=== PATIENT | male | born 1945 | race Caucasian/White ===

== ENCOUNTER 2025-01-21 11:24 | Emergency (ER) | payer MEDICARE ==
[~2025-01-21] VITALS: Ht 177.8 cm; Wt 66.2 kg
[2025-01-21 11:31] VITALS: TEMP 100.3
[2025-01-21] MEDS ORDERED: VALA100031 PO (12:16)
--- NOTE | 2025-01-21 12:16 | Physician Documentation ---
History of Present Illness ~ General Chief Complaint: Facial Swelling Stated Complaint: FACE INFECTION Time Seen by MD: 12:08 Mode of Arrival: POV, Ambulatory History of Present Illness Initial Comments 79 year old male with about one week of R sided facial rash which was treated with antibiotics. It has not gotten better. It was initially preceded by a ti ngling sensation of the right side of his face and scalp and then erupted in blisters and is somewhat painful. Reports +fever, N/V/D. Medication Reconciliation Allergies: Coded Allergies: No Known Allergies (Unverified , 01/21/25) Review of Systems All Other Systems at this time: Reviewed and Negative Physical Exam Physical Exam Vital Signs: RN Vital Signs have been reviewed: Yes, Temperature: 100.3, Source: Oral, Heart Rate: 74, Respiratory Rate: 16, BP: 127/73, Pulse Oximetry: 98, Weight: 66.200 Oxygen Flow Rate: 0 Physical Exam Gen: no distress HEENT: NCAT, EOMI, PERRL, MMM; erythematous, weeping, vesicular rash to R side of face involving primarily v1 dermatome, stops at midline, no induration, +zhong sign Pulm: no distress Cardiac: deferred Abdomen: soft, NT, ND MSK: no deformity Neuro: nonfocal Skin: w/d/i Psych: unremarkable Progress Results/Orders Results/Orders Orders - ERNESTINA STERLING MD Valacyclovir Tablet (Valtrex Tablet) (01/21/25 12:10) Vital Signs 01/21/25 11:31 Temp 100.3 Pulse 74 Resp 20 B/P (MAP) 127/73 Pulse Ox 98 O2 Flow Rate 0 Medical Decision Making Additional information obtaine: family Findings 79 year old male with apparent shingles. Advised discontinue antibiotic and will prescribe valacyclovir for on week. 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 Differential Diagnosis Ddx = shingles, cellulitis, lupus, sunburn, contact dermatitis Departure Disposition: HOME / SELF CARE / HOMELESS Impression: Primary Impression: Shingles Condition: Stable Discharge Instructions: Shingles Referrals: NO PRIMARY CARE PROVIDER (PCP) Prescriptions Valacyclovir HCl (Valacyclovir) 1,000 Mg Tablet 1 TAB PO Q8H for 7 Days, #21 TAB 0 Refills Prov: ERNESTINA STERLING MD 01/21/25 Education Educated: Patient Educated regarding: diagnosis, treatment, prognosis, need for follow up Signature Scribe Signature: . Attestation: . ERNESTINA STERLING MD Jan 21, 2025 12:16
[2025-01-21 12:19] VITALS: BP 128/78; PULSE 63; RESP 16; O2SAT 97
[2025-01-21] MEDS: fluorescein sod 1mg ophthalmic strip EACHEYE ONE (12:31)
== END 2025-01-21 12:49 | disposition home or self-care (01) ==
LOC: ER 11:25
DX: B02.9 Zoster without complications (principal)
CPT/HCPCS: 99283; J7030